=== PATIENT | male | born 1955 | race African-American/Black ===

== ENCOUNTER 2017-10-26 13:20 | Emergency (ER) | payer OTHER, BC ==
[2017-10-26 13:26] VITALS: BP 106/73; PULSE 67; TEMP 98; BMI 23.1
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
== END 2017-10-26 16:25 | disposition home or self-care (01) ==
LOC: JERFT 13:20
DX: F07.81 Postconcussional syndrome (principal); G44.319 Acute post-traumatic headache, not intractable; V83.5XXD Driver of special industrial vehicle injured in nontraffic accident, subsequent encounter
CPT/HCPCS: 70450-TC; 72125-TC; 99281-25